=== PATIENT | male | born 1970 | race Caucasian/White ===

== ENCOUNTER 2017-05-13 17:23 | Emergency (ER) | payer OTHER ==
[~2017-05-13] VITALS: Ht 182.9 cm; Wt 68.5 kg
[2017-05-13 18:48] LABS: HEMATOCRIT 42.3 % (38.0-50.0); MCH 29.7 PG (29.0-34.0); MCHC 32.6 G/DL (30.0-36.0); MCV 91.2 FL (86-99); MEAN PLAT.VOLUME 9.8 uM^3 (9.0-12.4); PLATELET COUNT 223 K/uL (156-360); RBC DIS.WIDTH-CV 12.6 % (11.8-14.6); RED BLOOD COUNT 4.64 M/uL (4.00-5.50); WHITE BLOOD COUNT 6.8 K/uL (4.1-10.2)
[2017-05-13 18:57] LABS: CHLORIDE 105 mEq/L (99-109); SODIUM 142 mEq/L (136-147)
[2017-05-13 18:59] LABS: GLUCOSE 65 mg/dL (70-99)
[2017-05-13 19:00] LABS: ANION GAP 7 MEQ/L (2-14)
[2017-05-13 19:01] LABS: TOTAL BILIRUBIN 0.3 mg/dL (0.0-1.0)
[2017-05-13 19:02] LABS: ALKALINE PHOSPHATASE 54 IU/L (3-129); GFR ESTIMATE (CALCULATED) > 59 mL/min/
[2017-05-13 19:04] LABS: UREA NITROGEN (BUN) 11 mg/dL (9-23)
[2017-05-13 20:35] LABS: ADD MIUA? NO; BILIRUBIN NEGATIVE; BLOOD NEGATIVE; COLOR COLORLESS ((YELLOW)); GLUCOSE (STRIP) NEGATIVE; KETONES NEGATIVE; LEUKOCYTES NEGATIVE; NITRITE NEGATIVE; PROTEIN (STRIP) NEGATIVE; SPECIFIC GRAVITY 1.005 (1.000-1.030); UROBILINOGEN 0.2 MG/DL (0.2-1.0)
[2017-05-13] MEDS ORDERED: VALACYCLOVIR1000 MG PO (20:39)
[2017-05-13] MEDS ORDERED: PREDNISONE20 MG PO (20:39)
[2017-05-13 21:10] VITALS: BP 140/85
== END 2017-05-13 21:11 | disposition home or self-care (01) ==
LOC: EME 17:23
PROVIDERS: Nurse Practitioner Family
DX: G51.0 Bell's palsy (principal); F17.200 Nicotine dependence, unspecified, uncomplicated
CPT/HCPCS: 70450; 80053; 81003; 85027; 93005; 99281; 99284; J7512